=== PATIENT | female | born 1950 | race Caucasian/White ===

== ENCOUNTER 2016-10-24 13:37 | Emergency (ER) | payer OTHER ==
[~2016-10-24] VITALS: Ht 167.6 cm; Wt 90.9 kg
[~2016-10-24 13:37] MED LIST: AMOXICILLIN 8751 TAB PO; AZO-CRANBERRY450 MG PO; CALCIUM 600600 M2 PO; COREG 6.256.25 MG/TA PO; DITROPAN 5MG TAB5 MG PO; FISH OIL1000 MG PO; FLONASE NASAL S16 GM NS; GENTAMICIN180 MG/502 NS; HCTZ 25MG TAB25 MG PO; LEVAQUIN 750MG750 M1 PO; LEVOXYL0.075 MG PO; LIPITOR 10MG10 MG PO; MULTI VITAMINS1 TAB PO; PREVACID 30MG30 M1 PO; PROVENTIL0.09 MG/A1 IH; RT ADVAIR HFA 2312 G IH; SINGULAIR 110 MG/TAB PO; THE MEDICINE S200 M2 PO; ZYRTEC 10MG10 MG PO
[2016-10-24 13:47] VITALS: TEMP 97.9
[2016-10-24 14:12] LABS: BASO # 0.1 (0.0-0.2); BASO % 0.5 % (0.0-2.0); EOS # 0.4 (0.0-0.7); EOS % 3.3 % (0-4.0); GRAN # 9.5 (1.4-6.5); GRAN % 74.3 % (42.2-75.2); HEMATOCRIT 45.6 % (37.0-47.0); HEMOGLOBIN 15.6 g/dl (12.5-16.0); LYMPH % 15.6 % (20.0-51.0); MEAN CELL VOLUME 87 fl (80.0-100.0); MEAN CORPUSCULAR HEMOGLOBIN 30 pg (27.0-31.0); MEAN CORPUSCULAR HGB CONC 34 g/dl (33.0-37.0); MEAN PLATELET VOLUME 10.8 fl (7.4-10.4); MONO # 0.7 (0.1-0.6); MONO % 5.4 % (1.7-9.3); PLATELET COUNT 204 K/mm3 (130-400); RED BLOOD COUNT 5.22 M/mm3 (4.10-5.30); REDCELL DISTRIBUTION WIDTH-CV 14.2 % (11.5-14.5); WHITE BLOOD COUNT 12.9 K/mm3 (4.8-10.8)
[2016-10-24 14:17] LABS: ADJUSTED CALCIUM 9.2 mg/dL (8.4-10.2); ALANINE AMINOTRANSFERASE 38 U/L (9-52); ALKALINE PHOSPHATASE 116 U/L (50-136); ANION GAP 13 mmol/L (7-16); BILIRUBIN,TOTAL 1.1 mg/dL (0.0-1.0); BLOOD UREA NITROGEN 17 mg/dL (7-17); CALCIUM 9.2 mg/dL (8.4-10.2); CARBON DIOXIDE 22 mmol/L (22-30); CHLORIDE 106 mmol/L (98-107); CREATININE, serum 0.74 mg/dL (0.52-1.25); GLUCOSE 94 mg/dL (74-106); LIPASE 113 U/L (23-300); POTASSIUM 3.4 mmol/L (3.4-5.0); SODIUM 141 mmol/L (137-145); TOTAL PROTEIN 6.6 gm/dL (6.4-8.2)
[2016-10-24 14:29] LABS: TROPONIN-I < 0.012 ng/mL (0.000-0.034)
[2016-10-24 16:24] VITALS: BP 144/75; PULSE 56
== END 2016-10-24 16:32 | disposition home or self-care (01) ==
LOC: COL.ER 13:37
PROVIDERS: Emergency Medicine
DX: S20.212A Contusion of left front wall of thorax, initial encounter (principal); S20.211A Contusion of right front wall of thorax, initial encounter; V43.62XA Car passenger injured in collision with other type car in traffic accident, initial encounter; Y92.410 Unspecified street and highway as the place of occurrence of the external cause; I10 Essential (primary) hypertension; J45.909 Unspecified asthma, uncomplicated
CPT/HCPCS: J7030; Q9967

== ENCOUNTER → 2017-05-08 | Outpatient (CLI) | payer MEDICARE, OTHER | LOC: MC.RAD 10:37 | DX: Z12.31 Encounter for screening mammogram for malignant neoplasm of breast (principal) ==

== ENCOUNTER → 2018-02-15 | Outpatient (CLI) | payer MEDICARE, OTHER | LOC: COL.PUL 01-12 08:00 | DX: J45.991 Cough variant asthma (principal); I07.1 Rheumatic tricuspid insufficiency ==

== ENCOUNTER 2018-06-20 18:38 | Emergency (ER) | payer MEDICARE, OTHER ==
[~2018-06-20] VITALS: Ht 167.6 cm; Wt 90.9 kg
[2018-06-20 18:43] VITALS: BP 145/81
[2018-06-20 19:22] LABS: BASO # 0.1 (0.0-0.2); BASO % 1.3 % (0.0-2.0); EOS # 0.8 (0.0-0.7); EOS % 8.5 % (0-4.0); GRAN # 5.5 (1.4-6.5); GRAN % 58.5 % (42.2-75.2); HEMATOCRIT 47.1 % (37.0-47.0); HEMOGLOBIN 15.9 g/dl (12.5-16.0); LYMPH # 2.2 (1.2-3.4); LYMPH % 23.7 % (20.0-51.0); MEAN CELL VOLUME 89 fl (80.0-100.0); MEAN CORPUSCULAR HEMOGLOBIN 30 pg (27.0-31.0); MEAN CORPUSCULAR HGB CONC 34 g/dl (33.0-37.0); MEAN PLATELET VOLUME 10.8 fl (7.4-10.4); MONO # 0.8 (0.1-0.6); MONO % 7.9 % (1.7-9.3); PLATELET COUNT 206 K/mm3 (130-400); RED BLOOD COUNT 5.31 M/mm3 (4.10-5.30); REDCELL DISTRIBUTION WIDTH-CV 14.6 % (11.5-14.5)
[2018-06-20 19:39] LABS: ALBUMIN 3.9 gm/dL (3.5-5.0); BILIRUBIN,TOTAL 0.4 mg/dL (0.0-1.0); CALCIUM 9.3 mg/dL (8.4-10.2); CREATININE, serum 0.68 mg/dL (0.52-1.25); POTASSIUM 3.8 mmol/L (3.4-5.0)
[2018-06-20 19:52] LABS: ERYTHROCYTE SEDIMENTATION RATE 1 mm/hr (0-30)
[2018-06-20 20:35] VITALS: PULSE 71
== END 2018-06-20 20:35 | disposition home or self-care (01) ==
LOC: COL.ER 18:38
PROVIDERS: Family Medicine
DX: R51 Headache (principal); I10 Essential (primary) hypertension
CPT/HCPCS: J1170; J2550

== ENCOUNTER → 2018-11-26 | Outpatient (CLI) | payer MEDICARE, OTHER ==
[2018-11-26 15:40] LABS: CALCIUM 9.6 mg/dL (8.4-10.2); CREATININE, serum 0.84 (0.52-1.25); POTASSIUM 3.8 mmol/L (3.4-5.0)
== END ==
LOC: COL.LAB 15:00
PROVIDERS: Internal Medicine Pulmonary Disease
DX: R06.02 Shortness of breath (principal)

== ENCOUNTER → 2019-04-20 | Outpatient (CLI) | payer MEDICARE, OTHER | LOC: MC.RAD 12:40 | DX: Z12.31 Encounter for screening mammogram for malignant neoplasm of breast (principal) ==

== ENCOUNTER 2019-07-24 19:55 | Emergency (ER) | payer MEDICARE, OTHER ==
[~2019-07-24] VITALS: Ht 167.6 cm; Wt 97.7 kg
[2019-07-24 20:45] LABS: BASO # 0.1 (0.0-0.2); BASO % 1.1 % (0.0-2.0); EOS # 0.4 (0.0-0.7); EOS % 4.3 % (0-4.0); GRAN # 6.3 (1.4-6.5); GRAN % 61.9 % (42.2-75.2); HEMATOCRIT 46.6 % (37.0-47.0); HEMOGLOBIN 15.6 g/dl (12.5-16.0); LYMPH # 2.7 (1.2-3.4); LYMPH % 26.1 % (20.0-51.0); MEAN CELL VOLUME 90 fl (80.0-100.0); MEAN CORPUSCULAR HEMOGLOBIN 30 pg (27.0-31.0); MEAN CORPUSCULAR HGB CONC 34 g/dl (33.0-37.0); MONO # 0.6 (0.1-0.6); MONO % 6.3 % (1.7-9.3); PLATELET COUNT 203 K/mm3 (130-400); RED BLOOD COUNT 5.18 M/mm3 (4.10-5.30); REDCELL DISTRIBUTION WIDTH-CV 14.6 % (11.5-14.5)
[2019-07-24 20:51] LABS: ALANINE AMINOTRANSFERASE 31 U/L (4-34); ALBUMIN 4.2 gm/dL (3.5-5.0); ALKALINE PHOSPHATASE 107 U/L (50-136); ANION GAP 9 mmol/L (7-16); AST,SGOT 28 U/L (15-37); BILIRUBIN,TOTAL 0.7 mg/dL (0.0-1.0); BLOOD UREA NITROGEN 16 mg/dL (7-17); CARBON DIOXIDE 26 mmol/L (22-30); CHLORIDE 103 mmol/L (98-107); CREATINE KINASE 186 U/L (30-135); CREATININE, serum 0.82 (0.52-1.25); GLUCOSE 92 mg/dL (74-106); POTASSIUM 3.3 mmol/L (3.4-5.0); SODIUM 137 mmol/L (137-145); TOTAL PROTEIN 6.8 gm/dL (6.4-8.2)
[2019-07-24 21:03] LABS: TROPONIN-I < 0.012 ng/mL (0.000-0.035)
[2019-07-25 00:55] VITALS: BP 149/94; PULSE 60; TEMP 96.8
== END 2019-07-25 01:00 | disposition home or self-care (01) ==
LOC: COL.ER 19:55
PROVIDERS: Emergency Medicine
DX: R55 Syncope and collapse (principal); J45.909 Unspecified asthma, uncomplicated; I10 Essential (primary) hypertension
CPT/HCPCS: J7030

== ENCOUNTER → 2020-01-02 | Outpatient (CLI) | payer MEDICARE, OTHER | LOC: COL.RAD 10:23 | DX: N30.20 Other chronic cystitis without hematuria (principal); N20.0 Calculus of kidney ==

== ENCOUNTER → 2020-02-07 | Outpatient (CLI) | payer MEDICARE, OTHER | LOC: COL.VAS 14:04 | DX: I51.7 Cardiomegaly (principal) ==

== ENCOUNTER → 2020-05-15 | Outpatient (CLI) | payer MEDICARE, OTHER | LOC: MC.RAD 10:10 | DX: Z12.31 Encounter for screening mammogram for malignant neoplasm of breast (principal) ==

== ENCOUNTER → 2021-12-23 | Outpatient (CLI) | payer MEDICARE, OTHER | LOC: MC.RAD 09:54 | DX: Z12.31 Encounter for screening mammogram for malignant neoplasm of breast (principal) ==

== ENCOUNTER 2022-03-09 09:00 | Inpatient (IN) | payer MEDICARE, OTHER ==
[~2022-03-09] VITALS: Ht 167.6 cm; Wt 101.0 kg
[~2022-03-09 09:00] MED LIST changes: -CALCIUM 600600 M2 PO; +CALCIUM 600600 MG PO
[2022-03-09 09:59] LABS: HEMOGLOBIN 14.7 g/dl (12.5-16.0); MEAN CELL VOLUME 89 fl (80.0-100.0); MEAN CORPUSCULAR HEMOGLOBIN 30 pg (27-31); MEAN CORPUSCULAR HGB CONC 34 g/dl (33.0-37.0); MEAN PLATELET VOLUME 11.1 fl (7.4-10.4); PLATELET COUNT 147 K/mm3 (130-400); RED BLOOD COUNT 4.84 M/mm3 (4.10-5.30); REDCELL DISTRIBUTION WIDTH-CV 14.4 % (11.5-14.5)
[2022-03-09 10:20] LABS: BILIRUBIN,TOTAL 2.1 mg/dL (0.2-1.2); CALCIUM 8.5 mg/dL (8.4-10.2); CREATININE, serum 1.38 mg/dL (0.57-1.11); TOTAL PROTEIN 6.5 gm/dL (6.2-8.1)
[2022-03-09 10:21] LABS: POTASSIUM 2.8 mmol/L (3.5-4.5)
[2022-03-09 10:22] LABS: BAND 1 % (0-10); LYMPHOCYTE 10 % (20.0-51.0); NEUTROPHILS 85 % (42.0-75.2); PLATELET ESTIMATE NORMAL (NORMAL)
[2022-03-09] MEDS ORDERED: REQUIP5 MG PO (12:48)
[2022-03-09 14:59] VITALS: BP 107/54; PULSE 69; TEMP 97.8
[2022-03-09 16:53] VITALS: BP 136/71; PULSE 70; TEMP 98.5
--- NOTE | 2022-03-09 18:00 | NUR ---
Patient admitted to room 358 from ED. Report recieved from KYLEIGH Khanna. Pharmacy, allergies, and medications reviewed. Admission paperwork completed. VSS. Patient A&O. Currenty requiring 2L of O2 via nasal cannula. Denies any pain, discmfort, SOA, or further needs at this time. Call light in reach.
[2022-03-09 21:20] VITALS: BP 126/60; PULSE 71; TEMP 97.4
--- NOTE | 2022-03-10 01:04 | NUR ---
Patient assessed around 1999. Alert and oriented, and able to make needs known. Denies having pain and discomfort. IV fluids running per orders. Denies SOB and dyspnea. LS CTA. HRR. Telemetry in place. BSAx4. Voices no questions, needs, or concerns at this time. In bed with call light within reach.
[2022-03-10 01:20] VITALS: BP 105/49; PULSE 62; TEMP 97.9
[2022-03-10 05:35] VITALS: BP 109/49; PULSE 70; TEMP 97.9
[2022-03-10] MEDS ORDERED: PRIL40 PO (05:38)
[2022-03-10] MEDS ORDERED: 00186-0370-20 IH (05:47)
--- NOTE | 2022-03-10 06:26 | NUR ---
Patient has denied having pain and discomfort this shift. Continues on oxygen at 2 L/min via NC. Voices no questions, needs, or concerns at this time. IV fluids continue per orders.
[2022-03-10 06:53] LABS: HEMATOCRIT 40.1 % (37.0-47.0); HEMOGLOBIN 13.7 g/dl (12.5-16.0); MEAN CELL VOLUME 89 fl (80.0-100.0); MEAN CORPUSCULAR HEMOGLOBIN 30 pg (27-31); MEAN CORPUSCULAR HGB CONC 34 g/dl (33.0-37.0); MEAN PLATELET VOLUME 12.3 fl (7.4-10.4); PLATELET COUNT 141 K/mm3 (130-400); RED BLOOD COUNT 4.51 M/mm3 (4.10-5.30); REDCELL DISTRIBUTION WIDTH-CV 14.1 % (11.5-14.5)
[2022-03-10 07:03] LABS: CALCIUM 8.6 mg/dL (8.4-10.2); CREATININE, serum 0.94 mg/dL (0.57-1.11); POTASSIUM 3.5 mmol/L (3.5-4.5)
[2022-03-10 07:43] LABS: BAND 6 % (0-10); LYMPHOCYTE 4 % (20.0-51.0); NEUTROPHILS 87 % (42.0-75.2); PLATELET ESTIMATE NORMAL (NORMAL)
[2022-03-10 08:06] VITALS: BP 115/57; PULSE 76; TEMP 98.2
--- NOTE | 2022-03-10 08:38 | NUR ---
PT SITTING UP IN RECLINER. MORNING MEDICATIONS GIVEN. SHIFT ASSESSMENT COMPLETED. PT CURRENTY BREATHING ON 2L OF O2 VIA NC. IVF INFUSING. PT DENIES ANY PAIN OR NEEDS AT THIS TIME. UPDATED ON POC. WILL CONTINUE TO MONITOR.
--- NOTE | 2022-03-10 09:30 | NUR ---
Initial visit; Patient thanked Slate Worker for looking in on her offering God's blessings and keeping her in [employer]ate Worker's prayers.
[2022-03-10 11:37] VITALS: BP 119/60; PULSE 72; TEMP 98.1
--- NOTE | 2022-03-10 14:02 | NUR ---
Buffing Machine Operator Semiautomatic met with patient to discuss discharge planning. Patient lives in [place] with her , Torni (ph#[phone]) and sees Dr. Rowan for primary care. Patient obtains medications from [email or web address] and when asked if she can afford her medications, she stated "sometimes it's not great, but it get's done". Patient has a CPAP and night time oxygen from [facility]. Patient uses no other DME and is independent with [facility]. Patient advised her , Torin is her DPOA. Patient plans to return home at time of discharge. Discharge Plan: Home
[2022-03-10 16:00] VITALS: BP 136/62; PULSE 71; TEMP 98.1
[2022-03-10 20:24] VITALS: BP 142/72; PULSE 72; TEMP 98.4
--- NOTE | 2022-03-10 23:03 | NUR ---
CALLED TO ROOM BY RN. PT STATING "SOMETHING SOUNDED LIKE IT WAS LEAKING, ENOUGH FOR IT TO WAKE ME UP." NO LEAKS FOUND WHEN ASSESSING HOME CPAP UNIT. ADDED EXTENSION TUBING TO PRIOR O2 TUBING. PT STATES SHE BELIEVES THE PROBLEMS FIXED AND IT WAS NO LONGER LEAKING. LEFT ROOM WHILE PT GOT IN BED TO GO BACK TO SLEEP. NOTIFIED RN OF NEED FOR O2 ORDER.
[2022-03-11 00:30] VITALS: BP 123/55; PULSE 68; TEMP 98.3
[2022-03-11 04:18] VITALS: BP 130/73; PULSE 82; TEMP 97
[2022-03-11 06:19] LABS: BASO % 0.1 % (0.0-2.0); GRAN # 9.9 K/mm3 (1.4-6.5); GRAN % 85.9 % (42.2-75.2); HEMATOCRIT 40.1 % (37.0-47.0); HEMOGLOBIN 13.5 g/dl (12.5-16.0); LYMPH # 0.6 K/mm3 (1.2-3.4); LYMPH % 5.5 % (20.0-51.0); MEAN CELL VOLUME 90 fl (80.0-100.0); MEAN CORPUSCULAR HEMOGLOBIN 30 pg (27-31); MEAN CORPUSCULAR HGB CONC 34 g/dl (33.0-37.0); MEAN PLATELET VOLUME 11.7 fl (7.4-10.4); MONO # 0.9 K/mm3 (0.1-0.6); MONO % 7.9 % (1.7-9.3); PLATELET COUNT 186 K/mm3 (130-400); RED BLOOD COUNT 4.46 M/mm3 (4.10-5.30); REDCELL DISTRIBUTION WIDTH-CV 14.4 % (11.5-14.5)
[2022-03-11 06:36] LABS: CALCIUM 8.7 mg/dL (8.4-10.2); CREATININE, serum 0.84 mg/dL (0.57-1.11); POTASSIUM 3.4 mmol/L (3.5-4.5)
[2022-03-11 08:04] VITALS: BP 120/62; PULSE 69; TEMP 98
[2022-03-11] MEDS ORDERED: PREDNISONE20 MG PO (08:29)
[2022-03-11] MEDS ORDERED: MONODOX100 PO (08:30)
[2022-03-11] MEDS ORDERED: OMNICEF 300MG300 MG PO (08:33)
[2022-03-11] MEDS ORDERED: ASPIRIN E.C. 8181 MG PO (08:37)
--- NOTE | 2022-03-11 09:52 | NUR ---
Systems Design Engineer attended clinical rounds and patient on room air. Patient to discharge home today.
== END 2022-03-11 10:30 | disposition home or self-care (01) | DRG 871 ==
LOC: COL.ER 09:00 → MEDICAL 13:19
PROVIDERS: Emergency Medicine; ADMIT Student in an Organized Health Care Education/Training Program
DX: A41.9 Sepsis, unspecified organism (principal); J18.9 Pneumonia, unspecified organism; J96.01 Acute respiratory failure with hypoxia; J45.901 Unspecified asthma with (acute) exacerbation; N17.9 Acute kidney failure, unspecified; E86.0 Dehydration; E03.9 Hypothyroidism, unspecified; G47.33 Obstructive sleep apnea (adult) (pediatric); G25.81 Restless legs syndrome; E87.6 Hypokalemia; Z20.822 Contact with and (suspected) exposure to COVID-19; I10 Essential (primary) hypertension; Z88.5 Allergy status to narcotic agent; Z88.8 Allergy status to other drugs, medicaments and biological substances; Z90.710 Acquired absence of both cervix and uterus; Z90.49 Acquired absence of other specified parts of digestive tract; Z79.890 Hormone replacement therapy; Z23 Encounter for immunization
CPT/HCPCS: J0696; J1650; J2765; J3480; J7030; J7120; J7512; J8540

== ENCOUNTER 2022-06-19 20:09 | Emergency (ER) | payer MEDICARE, OTHER ==
[~2022-06-19] VITALS: Ht 167.6 cm; Wt 100.0 kg
[~2022-06-19 20:09] MED LIST changes: +00186-0370-20 IH; +ASPIRIN E.C. 8181 MG PO; +MONODOX100 PO; +OMNICEF 300MG300 MG PO; +PREDNISONE20 MG PO; +PRIL40 PO; +REQUIP5 MG PO
[2022-06-19 20:16] VITALS: TEMP 98.7
[2022-06-19 20:46] LABS: BASO # 0.1 K/mm3 (0.0-0.2); BASO % 1.1 % (0.0-2.0); EOS # 0.9 K/mm3 (0.0-0.7); GRAN # 7.1 K/mm3 (1.4-6.5); GRAN % 64.5 % (42.2-75.2); HEMATOCRIT 46.1 % (37.0-47.0); HEMOGLOBIN 15.5 g/dl (12.5-16.0); LYMPH # 2.1 K/mm3 (1.2-3.4); LYMPH % 18.9 % (20.0-51.0); MEAN CELL VOLUME 89 fl (80.0-100.0); MEAN CORPUSCULAR HEMOGLOBIN 30 pg (27-31); MEAN CORPUSCULAR HGB CONC 34 g/dl (33.0-37.0); MEAN PLATELET VOLUME 10.7 fl (7.4-10.4); MONO # 0.8 K/mm3 (0.1-0.6); MONO % 7.1 % (1.7-9.3); PLATELET COUNT 204 K/mm3 (130-400); RED BLOOD COUNT 5.19 M/mm3 (4.10-5.30); REDCELL DISTRIBUTION WIDTH-CV 14.8 % (11.5-14.5)
[2022-06-19 20:58] LABS: ALANINE AMINOTRANSFERASE 37 U/L (0-55); ALKALINE PHOSPHATASE 109 U/L (40-150); ANION GAP 11 mmol/L (7-16); AST,SGOT 24 U/L (5-34); BILIRUBIN,TOTAL 0.4 mg/dL (0.2-1.2); BLOOD UREA NITROGEN 19 mg/dL (10-20); CALCIUM 9.6 mg/dL (8.4-10.2); CARBON DIOXIDE 25 mmol/L (23-31); CHLORIDE 107 mmol/L (98-107); CREATININE, serum 0.94 mg/dL (0.57-1.11); GLUCOSE 131 mg/dL (70-99); MAGNESIUM 2.1 mg/dL (1.6-2.6); POTASSIUM 3.1 mmol/L (3.5-4.5); SODIUM 143 mmol/L (136-145); TOTAL PROTEIN 7.5 gm/dL (6.2-8.1)
[2022-06-19 21:18] LABS: TSH w REFLEX 5.012 uIU/mL (0.350-4.940)
[2022-06-19 21:20] LABS: TROPONIN-I < 0.010 ng/mL (0.00-0.033)
[2022-06-19 21:55] LABS: SQUAMOUS EPITHELIAL 0-2 /hpf (0-10); URINE BACTERIA Rare /hpf (NONE SEEN); URINE RBC 0-2 /hpf (0-2); URINE WBC 0-2 /hpf (0-2)
[2022-06-19 21:59] LABS: COLLECTION METHOD CLEAN CATCH; PH 5.5 (5.0-8.5); URINE APPEARANCE Clear (CLEAR/HAZY); URINE COLOR Yellow (YELLOW); URINE GLUCOSE Negative (NEGATIVE); URINE KETONE Negative (NEGATIVE); URINE NITRATE Negative (NEGATIVE); URINE PROTEIN(semi-quant) Negative (NEGATIVE); URINE UROBILINOGEN 0.2 E.U/dL (0.2-1.0)
[2022-06-19 22:00] LABS: URINE BLOOD TRACE-INTACT (NEGATIVE)
[2022-06-19 22:31] VITALS: BP 137/65; PULSE 58
== END 2022-06-19 22:31 | disposition home or self-care (01) ==
LOC: COL.ER 20:09
PROVIDERS: Emergency Medicine
DX: E87.6 Hypokalemia (principal); E86.0 Dehydration
CPT/HCPCS: J7030